=== PATIENT | male | born 1945 ===

== ENCOUNTER 2025-04-02 08:34 | Inpatient (IN) | payer OTHER ==
[~2025-04-02] VITALS: Ht 172.7 cm; Wt 70.3 kg
[2025-04-02 09:35] LABS: BASO % 0.4 % (0.1-1.2); EOS # 0.09 (0.04-0.54); EOS % 1.7 % (0.7-7.0); LYMPH # 1.84 (1.18-3.74); LYMPH % 35.7 % (19.3-53.1); MEAN PLATELET VOLUME 9.30 fl (9.4-12.4); MONO # 0.38 (0.24-0.82); MONO % 7.4 % (4.7-12.5); NEUT # 2.82 (1.56-6.13); NEUT % 54.6 % (34.0-71.1); RED CELL DISTRIBUTION WIDTH 12.2 % (11.6-14.4)
[2025-04-02 09:39] LABS: URINE APPEARANCE Clear; URINE BILIRRUBIN Negative (NEGATIVE); URINE BLOOD Negative; URINE COLOR Yellow; URINE GLUCOSE Negative (NEGATIVE); URINE KETONE 15 (NEGATIVE); URINE LEUKOCYTE Negative; URINE NITRATE Negative; URINE PROTEIN Negative (NEGATIVE); URINE UROBILINOGEN 0.2 E.U./dl
[2025-04-02 09:40] LABS: URINE RBC 4.5 uL (0.0-20.8); URINE WBC 2.4 uL (0.0-23.2)
[2025-04-02 09:41] LABS: URINE BACTERIA 2.3 uL (0.0-1933); URINE CAST 0.14 uL (0.0-1.40); URINE EPITHELIAL CELLS 0.7 uL (0.0-38.8)
[2025-04-02 09:44] LABS: COVID-19 AG NEGATIVE (NEGATIVE)
[2025-04-02] MEDS ORDERED: ASA81 MG PO (09:50)
[2025-04-02] MEDS ORDERED: TAMS0.4C PO (09:50)
[2025-04-02] MEDS ORDERED: LOTREL 5-10 MG1 CAP PO (09:50)
[2025-04-02] MEDS ORDERED: ARED 2 (09:51)
[2025-04-02 09:58] LABS: INR 1.02
[2025-04-02 10:02] VITALS: BP 160/75
[2025-04-02 10:05] LABS: BUN CREA RATIO 22.0 (7.0-25.0); CREATININE SERUM 0.88 mg/dL (0.70-1.30); GFR 83.75; GLUCOSE FASTING 105.0 mg/dL (65-100); OSMOLALITY SERUM 291.0 MOSM/KG (275-295)
[2025-04-02 10:37] LABS: RH POSITIVE
[2025-04-07] MEDS ORDERED: ENOXAPARIN SODIUM 40 MG/0.4 ML SYRINGE SUBCUTANEO ONE ×2 (06:01→09:00)
[2025-04-07] MEDS ORDERED: CEFAZOLIN SODIUM 1,000 MG VIAL ONE (06:01)
[2025-04-07] MEDS ORDERED: BUPIVACAINE HCL/MPF 0.5% 30ML VIAL ONE (07:09)
[2025-04-07] MEDS ORDERED: SUGAMMADEX SODIUM 200 MG/2 ML VIAL IV ONE ×2 (07:37→08:10)
[2025-04-07] MEDS ORDERED: HEMOSTATIC MATRIX 1 KIT KIT TOP ONE (08:10)
[2025-04-07] MEDS ORDERED: SURGIFLO APPLICATOR 1 EACH APPL TOP ONE (08:11)
[2025-04-07] MEDS ORDERED: DEXAMETHASONE SODIUM PHOSPHATE 4 MG/ML VIAL ONE (08:19)
[2025-04-07] MEDS ORDERED: CEFAZOLIN SODIUM 1,000 MG VIAL IV ONE (09:00)
[2025-04-07] MEDS ORDERED: BUPIVACAINE HCL 30 ML VIAL IJ ONE (09:00)
[2025-04-07] MEDS ORDERED: RINGERS SOLUTION,LACTATED 1,000 ML IV SCH (10:15)
[2025-04-07] MEDS ORDERED: ONDANSETRON HCL 2 MG/ML VIAL IV PRN (10:15)
[2025-04-07] MEDS ORDERED: MORPHINE SULFATE 4 MG/ML CARTRIDGE IV PRN (10:15)
[2025-04-07] MEDS ORDERED: ENALAPRILAT DIHYDRATE 1.25 MG/ML VIAL IV PRN (10:15)
[2025-04-07] MEDS ORDERED: ENALAPRILAT DIHYDRATE 1.25 MG/ML VIAL IV ONE (11:03)
[2025-04-07] MEDS ORDERED: hydrALAZINE HCL 20 MG VIAL ONE (12:26)
[2025-04-07] MEDS ORDERED: hydrALAZINE HCL 20 MG VIAL IV STA (12:55)
[2025-04-07 13:40] VITALS: BP 160/71; O2SAT 95
[2025-04-07 14:40] VITALS: BP 131/83; O2SAT 100
[2025-04-07] MEDS ORDERED: hydrALAZINE HCL 20 MG VIAL IV PRN (15:00)
[2025-04-07 15:45] VITALS: BP 153/79; O2SAT 95
[2025-04-07] MEDS ORDERED: GABAPENTIN 300 MG CAPSULE PO SCH (17:00)
[2025-04-07] MEDS ORDERED: FAMOTIDINE/PF 20 MG/2 ML VIAL IV SCH (21:00)
[2025-04-07] MEDS ORDERED: CEFAZOLIN SODIUM 1,000 MG VIAL IV SCH (21:00)
[2025-04-08 01:30] VITALS: BP 145/78; O2SAT 100
[2025-04-08 06:22] LABS: BASO % 0.1 % (0.1-1.2); EOS # 0.00 (0.04-0.54); EOS % 0.0 % (0.7-7.0); LYMPH # 1.86 (1.18-3.74); LYMPH % 17.5 % (19.3-53.1); MEAN PLATELET VOLUME 9.60 fl (9.4-12.4); MONO # 1.14 (0.24-0.82); MONO % 10.8 % (4.7-12.5); NEUT # 7.56 (1.56-6.13); NEUT % 71.3 % (34.0-71.1); RED CELL DISTRIBUTION WIDTH 12.2 % (11.6-14.4)
[2025-04-08 06:56] LABS: BUN CREA RATIO 11.0 (7.0-25.0); CREATININE SERUM 0.92 mg/dL (0.70-1.30); GFR 79.57; GLUCOSE FASTING 91.0 mg/dL (65-100); OSMOLALITY SERUM 285.0 MOSM/KG (275-295)
[2025-04-08 08:11] VITALS: BP 162/82; O2SAT 95
[2025-04-08] MEDS ORDERED: ENOXAPARIN SODIUM 40 MG/0.4 ML SYRINGE SUBCUTANEO SCH (09:00)
== END 2025-04-08 15:29 | disposition home or self-care (01) | DRG 718 ==
LOC: O/R 04-07 06:00 → SURG 04-07 06:00 → SURH 04-07 07:00 → SURG 04-07 12:24
PROVIDERS: ADMIT Urology; ATTEND Urology
PROC: 8E0W4CZ Robotic Assisted Procedure of Trunk Region, Percutaneous Endoscopic Approach (ICD-10-PCS; 2025-04-07)
PROC: 0VB04ZZ Excision of Prostate, Percutaneous Endoscopic Approach (ICD-10-PCS; principal; 2025-04-07 07:00)
DX: N40.1 Benign prostatic hyperplasia with lower urinary tract symptoms (principal); R33.9 Retention of urine, unspecified
CPT/HCPCS: 55867; S2900